=== PATIENT | female | born 1950 | race Two or more races ===

== ENCOUNTER 2016-05-14 11:25 | Emergency (ER) | payer BC ==
[~2016-05-14] VITALS: Ht 165.1 cm; Wt 90.7 kg
[2016-05-14 11:39] VITALS: BP 152/80
--- NOTE | 2016-05-14 12:27 | NUR ---
66/F TO ED WITH C/O LEFT HEEL PAIN X3 DAYS. DENIES TRAUMA. STATES IT HURTS TO WALK ON FOOT. PAIN 9/10. PEDAL PULSES PRESENT BILAT. LUNGS CLEAR BILAT. HR EVEN AND REGULAR. AAOX4. VSS. NO SIGNS OF DISTRESS. ERMD TO SEE PT.
--- NOTE | 2016-05-14 12:27 | NUR ---
PT TAKEN TO BED 4 VIA WHEELCHAIR
[2016-05-14] MEDS ORDERED: KETOROLAC 30 MG/ML VIAL IM ONE (12:45)
--- NOTE | 2016-05-14 12:49 | NUR ---
Dr. Gottlieb re-evaluating patient at bedside.
[2016-05-14 13:13] VITALS: BP 152/80
== END 2016-05-14 13:13 | disposition home or self-care (01) ==
LOC: MED 11:25
PROC: 3E033GC Introduction of Other Therapeutic Substance into Peripheral Vein, Percutaneous Approach (ICD-10-PCS; principal; 2016-05-14)
DX: M72.2 Plantar fascial fibromatosis (principal); R03.0 Elevated blood-pressure reading, without diagnosis of hypertension; Z88.0 Allergy status to penicillin
CPT/HCPCS: 73630; 96372; 99284; J1885; Q0092